=== PATIENT | male | born 1980 | race African-American/Black ===

== ENCOUNTER 2021-07-02 15:53 | Emergency (ER) | payer SELFPAY ==
[~2021-07-02] VITALS: Ht 177.8 cm; Wt 76.0 kg
[2021-07-02] MEDS ORDERED: HYDROCODONE/ACETAMINOPHEN 5/325MG TABLET PO ONE (16:15)
[2021-07-02] MEDS ORDERED: LIDOCAINE HCL/EPINEPHRINE 1%-EPI 1:100,000 20 ML VIAL INFIL ONE (16:15)
[2021-07-02] MEDS ORDERED: HYDR-4001 MT (16:48)
[2021-07-02] MEDS ORDERED: IBUP-2030 MT (16:48)
[2021-07-02] MEDS ORDERED: CEPH500T MT (16:48)
[2021-07-02] MEDS ORDERED: DOXY100C5 MT (16:48)
[2021-07-02 18:48] VITALS: BP 116/75
== END 2021-07-02 18:49 | disposition home or self-care (01) ==
LOC: ER 16:17
DX: L53.9 Erythematous condition, unspecified (principal); J45.909 Unspecified asthma, uncomplicated
CPT/HCPCS: 10060; 87070; 87077; 87186; 87205; 99283; J3490

== ENCOUNTER 2021-07-04 15:41 | Emergency (ER) | payer SELFPAY ==
[~2021-07-04] VITALS: Ht 172.7 cm; Wt 72.0 kg
[~2021-07-04 15:41] MED LIST: CEPH500T MT; DOXY100C5 MT; HYDR-4001 MT; IBUP-2030 MT
[2021-07-04 15:50] VITALS: BP 87/66
== END 2021-07-04 17:24 | disposition home or self-care (01) ==
LOC: ER 15:41
DX: Z48.00 Encounter for change or removal of nonsurgical wound dressing (principal)
CPT/HCPCS: 99281